=== PATIENT | female | born 1990 | race Caucasian/White ===

== ENCOUNTER 2018-05-02 20:16 | Emergency (ER) | payer OTHER ==
[~2018-05-02] VITALS: Ht 165.1 cm; Wt 70.3 kg
[2018-05-02] MEDS ORDERED: ESTRADIOL1 EAC8 (20:34)
[2018-05-03] MEDS ORDERED: KETO10TA2 PO (02:59)
== END 2018-05-03 03:19 ==
LOC: ER 20:16 → EDBD 20:41 → ER 20:41
DX: R10.2 Pelvic and perineal pain (principal)